=== PATIENT | female | born 1990 | race American Indian/Alaskan Native ===

== ENCOUNTER 2016-09-29 07:59 | Emergency (ER) | payer BC, OTHER ==
[~2016-09-29] VITALS: Ht 160 cm; Wt 141.1 kg
[~2016-09-29 07:59] MED LIST: ANAPROX DS550 MG PO; NAPROSYN500 MG PO; NYQUIL D COLD295 ML PO
[2016-09-29] MEDS ORDERED: CIPRODEX OTIC7.5 ML AD (08:19)
[2016-09-29] MEDS ORDERED: IBUPROFEN600 MG PO (08:20)
[2016-09-29] MEDS ORDERED: AUGMENTIN 875-1 EACH PO (08:32)
[2016-09-29] MEDS ORDERED: NORCO 5-325 TA1 EACH PO (08:32)
== END 2016-09-29 09:16 | disposition home or self-care (01) ==
LOC: ED 07:59
DX: H60.92 Unspecified otitis externa, left ear (principal); H66.92 Otitis media, unspecified, left ear; E66.9 Obesity, unspecified; Z79.899 Other long term (current) drug therapy
CPT/HCPCS: 96372; 99283; J0696

== ENCOUNTER 2020-02-08 08:24 | Emergency (ER) | payer BC, OTHER ==
[~2020-02-08] VITALS: Ht 160 cm; Wt 125.6 kg
[~2020-02-08 08:24] MED LIST changes: +AUGMENTIN 875-1 EACH PO; +CIPRODEX OTIC7.5 ML AD; +IBUPROFEN600 MG PO; +NORCO 5-325 TA1 EACH PO
[2020-02-08] MEDS ORDERED: PENICILLIN V P500 MG PO (08:58)
== END 2020-02-08 09:08 | disposition home or self-care (01) ==
LOC: ED 08:24
DX: K08.89 Other specified disorders of teeth and supporting structures (principal); E66.9 Obesity, unspecified; Z79.899 Other long term (current) drug therapy
CPT/HCPCS: 99283; A9270

== ENCOUNTER 2021-10-26 07:45 | Observation (INO) | payer BC, OTHER ==
[~2021-10-26] VITALS: Ht 160 cm; Wt 125.6 kg
[~2021-10-26 07:45] MED LIST changes: +PENICILLIN V P500 MG PO
--- NOTE | 2021-10-26 14:45 | NUR ---
10/26/21 1445 Afsaneh Rosales 1437-PATIENT TO PACU ON 10L VIA MASK. PATIENT IS REACTIVE TO VERBAL STIMULI. OPENS EYES BUT FALLS ASLEEP EASILY. RESP EVEN AND UNLABORED. 1440-PATIENT REACTIVE TO VERBAL SIMULI. OPENS EYES. O2 TITRATED DOWN TO 6L VIA MASK
--- NOTE | 2021-10-26 15:30 | NUR ---
PT BACK FROM SURGERY, RECEIVED REPORT.
--- NOTE | 2021-10-26 17:53 | NUR ---
PT ATE 40% OF DINNER AND DRANK FLUIDS. DENEIS NAUSEA. PAIN 5/10, TOLERABLE. VS AND I&O COMPLETED. PT RESTING IN BED, EYES CLOSED. IV FLUIDS INFUSING PER ORDER. IV WNL. SCDs ON. CALL LIGHT IN REACH. FAMILY IN ROOM.
--- NOTE | 2021-10-26 18:23 | EKG ---
[facility] [address] [facility] [place], [place] [address] Signed Normal sinus rhythm Normal ECG No previous ECGs available Confirmed by ELVIS MUNOZ MD ([id number]) on 10/26/2021 6:23:06 PM Electronically Signed By: ELVIS MUNOZ MD 10/26/211822 PATIENT NAME: JUANA PARIKH Electrocardiogram DATE OF : [birth year] PHYSICIAN: ELVIS MUNOZ MD REPORT #: [id number] REPORT IS CONFIDENTIAL AND NOT TO BE RELEASED WITHOUT AUTHORIZATION
--- NOTE | 2021-10-26 18:52 | NUR ---
VS COMPLETED. PT CONTINUES TO NEED NC @ 2L TO MAINTAIN OXYGEN SAT GREATER THAN 92%. PT DROPS TO 85-88% ON ROOM AIR. NO OTHER NEEDS AT THIS TIME. CALL LIGHT IN REACH.
--- NOTE | 2021-10-26 19:34 | NUR ---
REPORT RECEIVED FROM DAY SHIFT RN. PT LYING IN BED RESTING WITH EYES CLOSED. RESPIRATIONS EVEN. CALL LIGHT IN REACH.
--- NOTE | 2021-10-26 21:45 | NUR ---
EVENING ASSESSMENT COMPLETE. SCHEDULED MEDS ADMIN PER EMAR. PT REPORTS ABD PAIN 09/06. PRN FOR PAIN ADMIN. DENIES NAUSEA. IVF INFUSING WNL. LAP SITES X 5 WITH STERI STRIPS INTACT. SCANT AMOUNT SEROSANG DRAINAGE NOTED. ABD SOFT. BOWEL TONES ACTIVE. PT DENIES FLATUS. REPORTS "GAS" PAIN. EDUCATION PROVIDED. PT AGREEABLE TO AMB AFTER PAIN IS TOLERABLE. JAIMIE AND ELGIN CRACKERS PROVIDED. SCD'S AND CPOX IN PLACE. SpO2 MID90'S ON 2L/NC. OXYGEN TITRATED TO 1L/NC. ENCOURAGED PT TO COUGH AND DEEP BREATHE. PT DENIES QUESTIONS OR CONCERNS. CALL LIGHT IN REACH.
--- NOTE | 2021-10-26 22:30 | NUR ---
CALL LIGHT ANSWERED. PT UP TO BR TO VOID 300 ML CLEAR YELLOW URINE. IN AWAD AMB WITH S/O.
--- NOTE | 2021-10-27 00:47 | NUR ---
PT RESTING IN BED WITH EYES CLOSED. AWAKENS EASILY. DENIES NEEDS. CALL LIGHT IN REACH.
--- NOTE | 2021-10-27 02:35 | NUR ---
IV PUMP ALARMING. NEW BAG IVF INFUSING WNL. VS AND I&O COMPLETE. PT UP TO BR WITH MINIMAL SBA TO VOID. BACK TO BED. SCD'S IN PLACE. CPOX IN PLACE. SpO2 LOW 90'S ON 1L/NC. PT REPORTS FEELING SOB, WHICH SHE REPORTS HAPPENS OCCASIONALLY SINCE HAVING COVID APPROX 1MO AGO. RESPIRATIONS EVEN. DENIES PAIN OR NAUSEA AT THIS TIME. ASSESSMENT UNCHANGED. FRESH ICE PACKS TO ABD. NO FURTHER NEEDS.
--- NOTE | 2021-10-27 03:48 | NUR ---
PT RESTING IN BED WITH EYES CLOSED. RESPIRATIONS EVEN. SpO2 91% ON 1L/NC. HR 50'S. IVF INFUSING WNL. S/O SLEEPING ON COUCH. CALL LIGHT IN REACH.
--- NOTE | 2021-10-27 05:45 | NUR ---
CALL LIGHT ANSWERED. PT UP TO BR WITH SBA TO VOID. GAIT STEADY. BACK TO BED, LENA WELL. VS AND I&O COMPLETE. PT REPORTS ABD PAIN 09/06. PRN FOR PAIN ADMIN PER EMAR. DENIES NAUSEA. RA AT THIS TIME. SpO2 91-93% ON RA. PT PROVIDED WITH INCENTIVE SPIROMETER. DEMONSTRATED PROPER USE. CPOX IN PLACE. FRESH ICE PACKS FOR ABD. NO FURTHER NEEDS.
--- NOTE | 2021-10-27 06:51 | NUR ---
PT UP TO BR TO VOID WITH MINIMAL SBA. ABLE TO GET SELF BACK TO BED. SCD'S/CPOX IN PLACE. PT ON RA. IVF INFUSING WNL. NO FURTHER NEEDS.
--- NOTE | 2021-10-27 07:35 | NUR ---
Patient in bed awake watching tv, no distress. Patient reports she slept well and has tolerable pain at this time. IV fluids infusing per provider order. No needs at this time.
--- NOTE | 2021-10-27 09:05 | NUR ---
Patient ambulating in hallway with significant other, tolerating well.
--- NOTE | 2021-10-27 09:45 | NUR ---
Patient ambulated in hallway x5 laps, tolerated very well. Admin ibuprofen 600mg po for pain at this time.
[2021-10-27] MEDS ORDERED: IBUPROFEN600 MG PO (10:38)
[2021-10-27] MEDS ORDERED: OXYCODON-ACETA1 EAC2 PO (10:39)
[2021-10-27] MEDS ORDERED: ACETAMINOPHEN500 MG PO (10:39)
--- NOTE | 2021-10-27 11:50 | NUR ---
Patient resting in bed, eyes closed, respirations even and non labored. Patient has no notable distress. Call light within reach.
--- NOTE | 2021-10-27 12:50 | NUR ---
One tab Percocet 7.5/325mg po for reports of 6/10 abdominal pain.
--- NOTE | 2021-10-27 17:23 | OR ---
[facility] [address] [place], [place] [address] Signed DATE OF OPERATION: 10/26/2021 SURGEON: Jeimy Griffiths MD PREOPERATIVE DIAGNOSES: 1. Acute calculous cholecystitis. 2. Morbid obesity (BMI greater than 52). POSTOPERATIVE DIAGNOSES: 1. Acute calculous cholecystitis. 2. Morbid obesity (BMI greater than 52). 3. Fatty liver without evidence or cirrhotic changes. PROCEDURES: 1. Laparoscopic cholecystectomy and intraoperative cholangiogram, prolonged, complicated, difficult. 2. Surgeon-directed fluoroscopy. ANESTHESIA: General endotracheal, Silviano Granby, APPLICATION DEVELOPMENT SPECIALIST and local 20 mL of 0.25% Marcaine with epinephrine. INDICATIONS: This 30-year-old morbidly obese woman, who presented to the emergency room this morning approximately 08:00 a.m. with severe right upper abdominal and epigastric pain with pain in the right posterior subscapular area. She had not had similar episodes in the past. Evaluation in the emergency room included gallbladder ultrasound, which showed a 3.5 cm gallstone in the midportion of the gallbladder. There was some question of nodularity of the liver. She does not have special risks factors for cirrhosis. She has been fluid resuscitated given intravenous antibiotics, and has been prepared for operation to at this time include cholecystectomy, preferably by laparoscopic approach. The risks of bleeding, infection, bile duct injury, need for open procedure and other unforeseen complications were reviewed in detail. She understands and wished to proceed. FINDINGS: There is no evidence of cirrhosis of the liver. She did have fatty infiltration of the liver. The gallbladder was acutely inflamed. Given her significant intraabdominal obesity, a fan retractor was used as well. The operation was prolonged, complicated, and difficult, but accomplished without complication. The cholangiogram was normal. Electronically Signed By: JEIMY GRIFFITHS MD 10/27/21 1723 PATIENT NAME: JUANA PARIKH OPERATIVE REPORT DATE OF : [birth year] REPORT #: [id number] PHYSICIAN: JEIMY GRIFFITHS MD PCP: [facility] REPORT IS CONFIDENTIAL AND NOT TO BE RELEASED WITHOUT AUTHORIZATION [facility] [address] [place], [place] [address] Signed The gallbladder showed acute inflammation as well as a 3.5 cm oblong gallstone. There were no other findings of concern. DESCRIPTION OF PROCEDURE: The patient was brought to the operating room, given a general endotracheal anesthetic. An additional dose of Ancef was given intravenously. Sequential compression device stockings were used. The abdomen was prepared with a chlorhexidine solution after general endotracheal anesthesia was induced. After sterile draping, an infraumbilical incision was made and using an open Yash cannula technique, the abdomen was entered and pneumoperitoneum achieved to a level of 14 mmHg of carbon dioxide gas. Intra-abdominal inspection showed no sign of ascites or carcinomatosis. The gallbladder was completely obscured from view at that point. The liver had fatty infiltration to be sure but no evidence of cirrhotic changes. Three additional trocars were placed in usual configuration in the subxiphoid, right midclavicular, and right anterior axillary line. The gallbladder was elevated cephalad, given the weight of the liver and so forth, securing of the grasper was not successful in usual way. Additionally, a fan retractor was clearly going to be necessary given her intraabdominal fat from the omentum. An additional 5 mm trocars were placed and another nursing scheduler obtained and elevation of the gallbladder more fully undertaken and the fat obscuring the infundibulum retracted. The infundibulum was grasped and retracted laterally and using blunt and electrocautery dissection the triangle of Calot was dissected free ultimately identifying cystic arterial branches, which were doubly clipped and divided as well as the cystic duct, which was relatively small. A clip was applied across gallbladder cystic duct junction and a transverse choledochotomy made in the cystic duct. Egress of clear bile was noted. An Simpson type cholangiocatheter was placed and using surgeon directed fluoroscopy, intraoperative cholangiography was undertaken showing free flow of contrast in biliary tree with prompt emptying into the duodenum. There was no sign of filling defect or other abnormality. The catheter was removed. The cystic duct was triply clipped and divided. The gallbladder was then dissected free in a retrograde fashion with all due care. No entry into the gallbladder was made throughout the course of dissection. The gallbladder was placed in an Endobag and extracted through the infraumbilical port site through the very thick abdominal wall pannus. The gallbladder was opened on the back table and found to have a single large oblong dark rounded 3.5 cm gallstone. The mucosa of the gallbladder was acutely inflamed. Irrigation was undertaken in subhepatic space. There was no sign of bile leak bleeding or other problems. The trocars removed under direct visualization. The infraumbilical fascial incision was re-approximated with interrupted 0-Vicryl suture as well as a running 0-PDS suture. A 10 mL of 0.25% Marcaine with epinephrine was injected locally in the infraumbilical wound and 10 mL divided between Electronically Signed By: JEIMY GRIFFITHS MD 10/27/21 1723 PATIENT NAME: JUANA PARIKH OPERATIVE REPORT DATE OF : [birth year] REPORT #: [id number] PHYSICIAN: JEIMY GRIFFITHS MD PCP: [facility] REPORT IS CONFIDENTIAL AND NOT TO BE RELEASED WITHOUT AUTHORIZATION [address] [place], [place] [address] Signed the other trocar sites. The skin was then closed with interrupted 3-0 Vicryl. Steri-Strips were applied. The patient was ultimately extubated and transferred to the recovery room in good condition and having suffered no complication. Sponge, needle, and instrument counts reported as correct x3. MD JUAN Hu/MODL /[id number] cc: [facility] Luc Pride MD Copies: LUC PRIDE MD ~ Electronically Signed By: JEIMY GRIFFITHS MD 10/27/21 1723 PATIENT NAME: JUANA PARIKH OPERATIVE REPORT DATE OF : [birth year] REPORT #: [id number] PHYSICIAN: JEIMY GRIFFITHS MD PCP: [facility] REPORT IS CONFIDENTIAL AND NOT TO BE RELEASED WITHOUT AUTHORIZATION
--- NOTE | 2021-10-27 17:23 | HP ---
[facility] [address] [place], [place] [address] Signed ADMISSION DATE: 10/26/2021 REASON FOR ADMISSION: Acute calculous cholecystitis and morbid obesity (BMI 49.1). HISTORY OF PRESENT ILLNESS: This 30-year-old [place] woman presented to the emergency room this morning with complaints of severe epigastric and right upper abdominal pain. She had awakened at about 07:00 a.m. and the pain was severe enough she "felt like I was going to ." She was brought to the emergency room by her boyfriend and was evaluated and care transitioned to Dr. Holloway, emergency room physician. Evaluation included gallbladder ultrasound, which showed a large gallstone in the midportion of the gallbladder as well as some pericholecystic fluid. The liver was thought to be nodular, but she did not have generalized ascites. LABORATORY STUDIES: Showed white count of only 9.2 and platelets 287,000. Liver enzymes essentially normal. PAST MEDICAL HISTORY: Quite unremarkable. She has never been . Has had no surgery in the past. She takes no medications at home. SOCIAL HISTORY: She has a boyfriend, who attends to her currently. 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 She is a registered [employer] member. REVIEW OF SYSTEMS: She denies any shortness of breath or actual chest pain. She has had no dysphagia, dysuria, or hematemesis. Her pain is primarily in the right subcostal and epigastric area and although improved, is still quite uncomfortable. She has some right upper posterior thoracic pain as well. She does have a chronic long-standing low back pain problem. PHYSICAL EXAMINATION: GENERAL: This is an obese [place] woman, who is well groomed. She is accompanied by her boyfriend. VITAL SIGNS: Temperature at presentation was 98, currently 98.1; blood pressure 119/70, more recently 86/55; respiratory rate of 17. HEENT: Her mucous membranes are slightly dry. Trachea is midline. CHEST: Clear. HEART: Regular, without murmur. Electronically Signed By: JEIMY GRIFFITHS MD 10/27/21 1723 PATIENT NAME: JUANA PARIKH HISTORY AND PHYSICAL DATE OF : 86 REPORT #: [id number] PHYSICIAN: JEIMY GRIFFITHS MD PCP: [facility] REPORT IS CONFIDENTIAL AND NOT TO BE RELEASED WITHOUT AUTHORIZATION [facility] [address] [place], [place] [address] Signed ABDOMEN: Quite obese, but soft overall and there is tenderness in the right subcostal epigastric area. She has no gross evidence of ascites. EXTREMITIES: Show no clubbing, cyanosis, or edema. LABORATORY DATA: Lab studies show white count of 9.2, hematocrit 39.7, and platelets 287,000. Chem profile essentially normal, glucose 108, albumin 3.2, and lipase 87. Beta-hCG negative. Urinalysis is normal. Serology shows no evidence of COVID disease or other respiratory viruses. IMAGING STUDIES: Reviewed and I personally spoke with Dr. Irwin, radiologist regarding her ultrasound findings. ASSESSMENT AND PLAN: Close review of her risk for cirrhosis was undertaken. She does drink alcohol somewhat routinely, but not excessively and does not consider herself never to have had alcohol dependency issues. She has no family history of cirrhosis. She does have family history of biliary disease in her mother, who required what sounds like common duct exploration. The patient shows no stigmata of typical cirrhotic changes, specifically no petechiae. She has no evidence of thrombocytopenia. I have discussed with the patient and her boyfriend the pathophysiology of biliary disease as relates to acute cholecystitis with gallstones. I have recommended cholecystectomy. A more prompt operation is generally preferable as evolution of significant cholecystitis can be progressive enough that makes operation more challenging and with high risks of complications. Discussed with her the risks of bleeding, infection, bile duct injury, need for open procedure, and so on. If she is found to have significant cirrhosis, which I doubt, other measures may need to be taken to address this problem including possibility of open procedure per se. I think it is less likely, however. She has already been initiated on antibiotics 2 g of Ancef and will be getting Pepcid 20 mg IV and consent form to be witnessed by the ER nurse. Jeimy Griffiths MD JM/MODL Electronically Signed By: JEIMY GRIFFITHS MD 10/27/21 1723 PATIENT NAME: JUANA PARIKH HISTORY AND PHYSICAL DATE OF : 86 REPORT #: [id number] PHYSICIAN: JEIMY GRIFFITHS MD PCP: [facility] REPORT IS CONFIDENTIAL AND NOT TO BE RELEASED WITHOUT AUTHORIZATION [address] [address] Signed /[id number] cc: Luc Holloway MD Copies: LUC HOLLOWAY MD ~ Electronically Signed By: JEIMY GRIFFITHS MD 10/27/21 1723 PATIENT NAME: JUANA PARIKH HISTORY AND PHYSICAL DATE OF : [birth year] REPORT #: [id number] PHYSICIAN: JEIMY GRIFFITHS MD PCP: [facility] REPORT IS CONFIDENTIAL AND NOT TO BE RELEASED WITHOUT AUTHORIZATION
--- NOTE | 2021-10-30 15:55 | PATH ---
[facility] [address] [facility] [place], [place] [address] Signed SPECIMEN(S): A GALLBLADDER AND STONE SPECIMEN SOURCE: A. GALLBLADDER AND STONE CLINICAL HISTORY: Acute cholecystitis/cholelithiasis. FINAL PATHOLOGIC DIAGNOSIS: Gallbladder and stone: - Chronic calculous cholecystitis. - Mucosal cholesterolosis. JVR:daniel:[id number] MICROSCOPIC EXAMINATION: Histologic sections of all submitted blocks are examined by light microscopy. These findings, together with the gross examination, support the pathologic diagnosis. GROSS DESCRIPTION: The specimen, labeled "JW, gallbladder," is received in formalin and consists of Specimen: Previously opened gallbladder. Dimensions: 8.2 cm in length and 5.7 cm in inner circumference. Serosa: violaceous and smooth. Cystic Duct: unobstructed. Calculi: One dark green gallstone within the container that measure 3.8 cm in greatest dimension. Mucosa: Chloride-dove and velvety. Wall thickness: 0.8 cm. Lymph node: No pericystic lymph nodes are grossly identified. Additional: None. Pattern Mechanic sections are submitted in cassette (A1). JS (under the direct supervision of a pathologist) The Gross Description was prepared using a voice recognition system. The report was reviewed for accuracy; however, sound-alike word errors, addition and/or deletions may occur. If there is any question about this report, please contact Client Services. PERFORMING LABORATORY: The technical component was performed by [employer], Alonso Aguayo, PATIENT NAME: JUANA PARIKH PATHOLOGY DATE OF : [birth year] REPORT #: [id number] PHYSICIAN: [facility] PATHOLOGY PCP: [facility] REPORT IS CONFIDENTIAL AND NOT TO BE RELEASED WITHOUT AUTHORIZATION [address] [place], [place] [address] [place] [address] (CLIA# [id number]). Professional interpretation was performed by [facility] - [address] [address] (CLIA#: [id number]). Diagnostician: Vicente Booker MD Pathologist Electronically Signed 10/30/2021 Copies: ~ PATIENT NAME: JUANA PARIKH PATHOLOGY DATE OF : [birth year] REPORT #: [id number] PHYSICIAN: ORAL PATHOLOGY PCP: [facility] REPORT IS CONFIDENTIAL AND NOT TO BE RELEASED WITHOUT AUTHORIZATION
== END 2021-10-27 13:00 | disposition home or self-care (01) ==
LOC: ED 07:45 → MS 07:47
PROVIDERS: ADMIT Surgery; ATTEND Surgery
PROC: BF10YZZ Fluoroscopy of Bile Ducts using Other Contrast (ICD-10-PCS; 2021-10-26)
PROC: 0FT44ZZ Resection of Gallbladder, Percutaneous Endoscopic Approach (ICD-10-PCS; principal; 2021-10-26 12:26)
DX: K80.12 Calculus of gallbladder with acute and chronic cholecystitis without obstruction (principal); E66.01 Morbid (severe) obesity due to excess calories; Z68.42 Body mass index [BMI] 45.0-49.9, adult; K76.0 Fatty (change of) liver, not elsewhere classified; Z20.822 Contact with and (suspected) exposure to COVID-19
CPT/HCPCS: 36415; 74300; 76705; 80053; 81001; 83690; 84703; 85025; 87502; 93005; 93010; 96361; 96374; 96375; 96376; 99285-25; A9270; C9803; G0378; J0690; J1100; J1170; J1885; J2001; J2250; J2405; J2704; J3010; J7030; J7121; Q9967; U0003

== ENCOUNTER 2024-05-01 17:08 | Emergency (ER) | payer OTHER ==
[~2024-05-01] VITALS: Ht 160 cm; Wt 141.1 kg
[~2024-05-01 17:08] MED LIST changes: +ACETAMINOPHEN500 MG PO; +OXYCODON-ACETA1 EAC2 PO
[2024-05-01 18:19] VITALS: BP 134/85
== END 2024-05-01 18:19 | disposition home or self-care (01) ==
LOC: ED 17:08
DX: S86.812A Strain of other muscle(s) and tendon(s) at lower leg level, left leg, initial encounter (principal); W01.0XXA Fall on same level from slipping, tripping and stumbling without subsequent striking against object, initial encounter
CPT/HCPCS: 73560; 99283